=== PATIENT | male | born 1985 | race Two or more races ===

== ENCOUNTER 2017-04-19 00:32 | Emergency (ER) | payer OTHER ==
[~2017-04-19] VITALS: Ht 177.8 cm; Wt 83.9 kg
[2017-04-19] MEDS ORDERED: HYDROmorphone HCL 2 MG/ML VL IM ONE (00:45)
[2017-04-19] MEDS ORDERED: ONDANSETRON HCL 4 MG/2 ML VIAL IM ONE (00:45)
[2017-04-19] MEDS ORDERED: ONDANSETRON HCL 4 MG/2 ML VIAL ONE (00:47)
[2017-04-19] MEDS ORDERED: HYDROmorphone HCL 2 MG/ML VL ONE (00:48)
[2017-04-19] MEDS ORDERED: ONDANSETRON ODT 4 MG TAB PO ONE ×2 (00:51→01:00)
[2017-04-19] MEDS ORDERED: PROPOFOL 10 MG/ML 20 ML IV ONE (01:15)
[2017-04-19] MEDS ORDERED: ETOMIDATE (2MG/ML) 20ML VIAL IV ONE (01:30)
[2017-04-19 01:43] VITALS: BP 102/62
== END 2017-04-19 03:00 | disposition home or self-care (01) ==
LOC: ER 00:34
DX: S43.004A Unspecified dislocation of right shoulder joint, initial encounter (principal); X58.XXXA Exposure to other specified factors, initial encounter; Y93.89 Activity, other specified; Y99.8 Other external cause status; Y92.89 Other specified places as the place of occurrence of the external cause
CPT/HCPCS: 23650; 73020; 73030; 96372; 99152; 99285; J1170; J2405; J2704; Q0162